=== PATIENT | male | born 1980 | race Hispanic/Latino ===

== ENCOUNTER → 2023-10-30 | Emergency (ER) | payer SELFPAY ==
[~2023-10-30] VITALS: Ht 180.3 cm; Wt 136.1 kg
[2023-10-30] MEDS: 0.9%NACL 1000ML 1,000 ML IV ONE (16:59)
[2023-10-30 17:09] LABS: BASOPHILS % (AUTO) 0.7 % (0.0-5.0); EOSINOPHILS # (AUTO) 0.02 K/uL (0.00-0.70); EOSINOPHILS % (AUTO) 0.1 % (0.0-8.0); HEMATOCRIT 46.5 % (42-54); IMMATURE GRANULOCYTE ABSOLUTE 0.04 K/uL (0-1); LYMPHOCYTES # (AUTO) 2.2 K/uL (1.0-4.8); LYMPHOCYTES % (AUTO) 16.3 % (21.0-51.0); MEAN CORPUSCULAR HEMOGLOBIN 30.9 pg (27.0-33.0); MEAN CORPUSCULAR HGB CONC 34.6 g/dL (32.0-36.0); MEAN CORPUSCULAR VOLUME 89.3 fL (79-99); MONOCYTES # (AUTO) 0.7 K/uL (0.1-1.0); MONOCYTES % (AUTO) 5.4 % (3.0-13.0); NEUTROPHILS # (AUTO) 10.5 K/uL (1.8-7.7); NEUTROPHILS % (AUTO) 77.2 % (40.0-77.0); PLATELET COUNT (AUTO) 203 K/uL (130-400); RED BLOOD CELL COUNT(AUTO) 5.21 MIL/uL (4.50-6.20); WHITE BLOOD COUNT (AUTO) 13.6 K/uL (4.8-10.8)
[2023-10-30 17:19] LABS: CREATININE 4.2 mg/dL (0.5-1.3); POTASSIUM 4.2 mmol/L (3.5-5.1)
[2023-10-30] MEDS: ONDANSETRON 4MG INJ IVP ONE (17:33)
[2023-10-30 20:47] VITALS: BP 109/46; PULSE 73; RESP 18; O2SAT 98
== END ==
LOC: EDH 16:40
DX: N17.9 Acute kidney failure, unspecified (principal); R74.8 Abnormal levels of other serum enzymes; I10 Essential (primary) hypertension; F41.9 Anxiety disorder, unspecified
CPT/HCPCS: 99291; 96374; 96361; 82550; 80048; 85025; 36415; 93005; J7030; J2405